=== PATIENT | female | born 1965 | race Caucasian/White ===

== ENCOUNTER 2017-06-21 16:18 | Outpatient (CLI) | payer MEDICARE, MEDICAID | END 2017-06-21 16:19 | disposition EMS.NT | LOC: EMS 16:18 | PROVIDERS: ATTEND Surgery | DX: R56.9 Unspecified convulsions (principal) ==

== ENCOUNTER 2017-06-21 22:41 | Outpatient (CLI) | payer MEDICARE, MEDICAID | END 2017-06-21 22:42 | disposition critical access hospital (66) | LOC: EMS 22:41 | PROVIDERS: ATTEND Surgery | DX: R56.9 Unspecified convulsions (principal) | CPT/HCPCS: A0425; A0427 ==

== ENCOUNTER 2017-06-21 23:02 | Emergency (ER) | payer MEDICARE, MEDICAID ==
[2017-06-22 00:23] LABS: BILIRUBIN,URINE NEGATIVE (NEGATIVE); GLUCOSE, URINE (UA) NEGATIVE (NEGATIVE); KETONES,URINE (UA) NEGATIVE (NEGATIVE); LEUKOCYTE ESTERASE, URINE NEGATIVE (NEGATIVE); NITRITE,URINE NEGATIVE (NEGATIVE); OCCULT BLOOD,URINE TRACE-INTA (NEGATIVE); PROTEIN,URINE TRACE mg/dL (NEGATIVE); UROBILINOGEN,URINE 0.2 (NORMAL) E.U./dL (NORMAL)
[2017-06-22 00:27] LABS: CLARITY,URINE CLEAR (CLEAR)
[2017-06-22 00:41] LABS: BASOPHILS # (AUTO) 0.1 10^3/uL (0.0-0.1); BASOPHILS % (AUTO) 0.6 %; HGB - HEMOGLOBIN 12.1 g/dL (12.0-16.0); LYMPHOCYTES # (AUTO) 0.8 10^3/uL (1.5-3.5); LYMPHOCYTES % (AUTO) 7.1 %; MEAN CORPUSCULAR HEMOGLOBIN 30.1 pg (27.0-31.0); MEAN CORPUSCULAR HGB CONC 34.1 g/dL (32.0-36.0); MEAN CORPUSCULAR VOLUME 88.2 fL (81.0-99.0); MONOCYTES # (AUTO) 0.5 10^3/uL (0.0-1.0); NEUTROPHILS # (AUTO) 10.4 10^3/uL (1.5-6.6); NEUTROPHILS % (AUTO) 88.3 %; PLT - PLATELET COUNT 288 10^3/uL (130-450); RED BLOOD COUNT 4.03 10^6/uL (4.20-5.40); RED CELL DISTRIBUTION WIDTH 13.2 % (12.0-15.0); WHITE BLOOD COUNT 11.8 x10^3/uL (4.8-10.8)
[2017-06-22 00:54] LABS: ALBUMIN 3.7 g/dL (3.2-5.5); ALBUMIN/GLOBULIN RATIO 1.1 (1.0-2.2); BILIRUBIN,TOTAL 0.2 mg/dL (0.2-1.0); CALCIUM 8.8 mg/dL (8.5-10.3); CREATININE 0.8 mg/dL (0.4-1.0)
[2017-06-22] MEDS: SODIUM CHLORIDE 0.9% 1,000 ML IV ONE (01:16)
[2017-06-22] MEDS: POTASSIUM BICARB 25 MEQ TABLET PO STA (01:17)
--- NOTE | 2017-06-22 01:27 | ED Physician Documentation ---
PD HPI SEIZURE - Stated complaint Stated Complaint: SZ - Chief complaint Chief Complaint: Neuro - History obtained from History obtained from: Patient, EMS - History of Present Illness Timing - onset: Today Witnessed: Witnessed Number of seizures: Multiple (X 4 today) Description of seizure activity: Generalized Injury during seizure: None Associated symptoms: None History of seizures: Known seizure disorder Contributing factors: No: Off meds, Out of meds, Low blood sugar Similar symptoms before: Diagnosis (seizure disorder) Recently seen: Not recently seen - Additional information Additional information: 51-year-old female with a lifetime history of seizure disorder maintained on topiramate and clonazepam has run out of her clonazepam. She is uncertain exactly how long she has been out she has had seizure previously when she has run out. She was not able to provide this information until late in the visit. She denies any other intercurrent illness. Review of Systems Constitutional: denies: Fever, Myalgias, Fatigue Eyes: denies: Decreased vision Ears: denies: Ear pain Nose: denies: Rhinorrhea / runny nose, Congestion Throat: denies: Sore throat Cardiac: denies: Chest pain / pressure Respiratory: denies: Dyspnea, Cough GI: denies: Abdominal Pain, Nausea, Vomiting : denies: Dysuria, Frequency Skin: denies: Rash Musculoskeletal: denies: Neck pain, Back pain Neurologic: reports: Seizure. 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 ATTENDANT: Tubal ligation - Present Medications Home Medications: Ambulatory Orders Medication Instructions Recorded Confirmed Clonazepam 1 mg PO BID 12/26/13 04/12/16 Topiramate [Topamax] 350 mg PO BID 12/26/13 04/12/16 Levothyroxine [Synthroid] 100 mcg PO QDAC 09/02/15 04/12/16 Omeprazole 20 mg PO DAILY 09/02/15 04/12/16 clonazePAM [Clonazepam] 1 mg PO BID #20 tablet 06/22/17 - Allergies Allergies/Adverse Reactions: Allergies Allergy/AdvReac Type Severity Reaction Status Date / Time phenytoin sodium * Allergy Unknown Verified 06/21/17 23:09 [From Dilantin] phenytoin sodium extended * Allergy Unknown Verified 06/21/17 23:09 [From Dilantin] - Social History Does the pt smoke?: No Smoking Status: Never smoker Does the pt drink ETOH?: No Does the pt have substance abuse?: No - POLST Patient has POLST: No PD ED PE NORMAL - Vitals Vital signs reviewed: Yes (normal ) - General General: No acute distress, Well developed/nourished, Other (The patient answers with some latency but appropriately answers questions. She seems vague about everything.) - HEENT HEENT: Atraumatic, PERRL, EOMI, Other (mild erythema to both TM's) - Neck Neck: Supple, no meningeal sign, No bony TTP - Cardiac Cardiac: RRR, No murmur - Respiratory Respiratory: No respiratory distress, Clear bilaterally - Abdomen Abdomen: Soft, Non tender - Back Back: No CVA TTP, No spinal TTP - Derm Derm: Normal color, Warm and dry, No rash - Extremities Extremities: No deformity, No edema - Neuro Neuro: No motor deficit, No sensory deficit Eye Opening: Spontaneous Motor: Obeys Commands Verbal: Oriented GCS Score: 15 - Psych Psych: Normal mood, Normal affect Results - Vitals Vitals: Vital Signs - 24 hr 06/21/17 06/21/17 06/21/17 23:04 23:26 23:30 Temperature 35.9 C L Heart Rate 100 85 84 Respiratory 20 20 Rate Blood Pressure 116/63 116/63 O2 Saturation 17 L 93 95 06/21/17 06/22/17 06/22/17 23:32 00:25 00:39 Temperature Heart Rate 80 73 86 Respiratory 20 18 17 Rate Blood Pressure 99/63 102/60 O2 Saturation 97 100 100 06/22/17 06/22/17 06/22/17 01:50 02:38 03:05 Temperature Heart Rate 89 80 94 Respiratory 19 18 20 Rate Blood Pressure 101/63 114/96 H 116/65 O2 Saturation 100 100 96 06/22/17 06/22/17 06/22/17 04:30 06:19 07:21 Temperature Heart Rate 83 62 83 Respiratory 16 16 16 Rate Blood Pressure 119/70 110/69 118/79 O2 Saturation 97 96 96 Oxygen O2 Source Room air Oxygen Flow Rate 3 - EKG (time done) 0531 Rate: Rate (enter#) (76) Rhythm: NSR Ischemia: Normal ST segments Compare to prior EKG: Old EKG unavailable Computer interpretation: Agree with computer - Labs Labs: Laboratory Tests 06/21/17 06/21/17 06/21/17 00:33 00:33 00:33 WBC 11.8 H RBC 4.03 L Hgb 12.1 Hct 35.5 L MCV 88.2 MCH 30.1 MCHC 34.1 RDW 13.2 Plt Count 288 MPV 7.0 L Neut # 10.4 H Lymph # 0.8 L [place] # 0.5 Eos # 0.0 Baso # 0.1 Absolute Nucleated RBC 0.00 Nucleated RBC % 0.0 Sodium 132 L Potassium 2.9 L Chloride 97 L Carbon Dioxide 20 L Anion Gap 15.0 H BUN 12 Creatinine 0.8 Estimated GFR (MDRD) 75 L Glucose 153 H Calcium 8.8 Total Bilirubin 0.2 AST 28 ALT 19 Alkaline Phosphatase 78 Total Creatine Kinase CK-MB (CK-2) Troponin I 0.05 Total Protein 7.0 Albumin 3.7 Globulin 3.3 Albumin/Globulin Ratio 1.1 Lipase 19 L Urine Color Urine Clarity Urine pH Ur Specific [place] Urine Protein Urine Glucose (UA) Urine Ketones Urine Occult Blood Urine Nitrite Urine Bilirubin Urine Urobilinogen Ur Leukocyte Esterase Ur Microscopic Review Urine Culture Comments 06/22/17 06/22/17 06/22/17 00:05 03:33 03:33 WBC RBC Hgb Hct MCV MCH MCHC RDW Plt Count MPV Neut # Lymph # [place] # Eos # Baso # Absolute Nucleated RBC Nucleated RBC % Sodium Potassium Chloride Carbon Dioxide Anion Gap BUN Creatinine Estimated GFR (MDRD) Glucose Calcium Total Bilirubin AST ALT Alkaline Phosphatase Total Creatine Kinase 242 CK-MB (CK-2) 4.0 Troponin I Total Protein Albumin Globulin Albumin/Globulin Ratio Lipase Urine Color YELLOW Urine Clarity CLEAR Urine pH 6.0 Ur Specific [place] 1.015 Urine Protein TRACE Urine Glucose (UA) NEGATIVE Urine Ketones NEGATIVE Urine Occult Blood TRACE-INTA Urine Nitrite NEGATIVE Urine Bilirubin NEGATIVE Urine Urobilinogen 0.2 (NORMAL) Ur Leukocyte Esterase NEGATIVE Ur Microscopic Review NOT INDICATED Urine Culture Comments NOT INDICATED 06/22/17 06/22/17 04:02 06:35 WBC RBC Hgb Hct MCV MCH MCHC RDW Plt Count MPV Neut # Lymph # [place] # Eos # Baso # Absolute Nucleated RBC Nucleated RBC % Sodium Potassium Chloride Carbon Dioxide Anion Gap BUN Creatinine Estimated GFR (MDRD) Glucose Calcium Total Bilirubin AST ALT Alkaline Phosphatase Total Creatine Kinase CK-MB (CK-2) Troponin I 0.09 0.11 Total Protein Albumin Globulin Albumin/Globulin Ratio Lipase Urine Color Urine Clarity Urine pH Ur Specific [place] Urine Protein Urine Glucose (UA) Urine Ketones Urine Occult Blood Urine Nitrite Urine Bilirubin Urine Urobilinogen Ur Leukocyte Esterase Ur Microscopic Review Urine Culture Comments Procedures - IVC sono (time) 0115 Bedside IVC sono: IVC measures (cm) (0.97), IVC collapsed c insp (cm) (complete) , Dehydration (est 2 liter deficiet) PD MEDICAL DECISION MAKING - ED course Complexity details: reviewed old records, reviewed results, re-evaluated patient , considered differential, d/w patient ED course: 51 y/o female with a seizure disorder since childhood has had 4 seizures today and she is uncertain about weather she has taken her topomax. She is administered her topamax this morning. She has run out of her clonazepam and has had seizure because of this previously. She is administered clonazepam as well. Today we measured her troponin when she arrived and it was a tick above normal. A second trop was a tiny higher and I have asked the hospitalist to admit the patient to observation to follow the trop. Elevations in trop are minimal and a third trop is obtained in the ED and the patient is discharged to home. I could not make a case for a coronary syndrome and my only explanation for the elevated trop was the stress of the multiple seizures. Departure - Departure Disposition: 01 Home, Self Care Clinical Impression: Recurrent seizures, Elevation of cardiac enzymes, Seizure secondary to subtherapeutic anticonvulsant medication Condition: Stable Instructions: ED Seizure Recurrent Follow-Up: Alysa Blanco PA-C [Primary Care Provider] - Prescriptions: clonazePAM [Clonazepam] 1 mg PO BID #20 tablet Discharge Date/Time: 06/22/17 08:15
[2017-06-22] MEDS: POTASSIUM CHLORIDE 20 MEQ TABLET PO STA (03:03)
[2017-06-22] MEDS: TOPIRAMATE 100 MG TABLET PO STA (04:30)
[2017-06-22] MEDS: clonazePAM 0.5 MG TABLET PO STA (04:59)
[2017-06-22 07:22] VITALS: BP 118/79
== END 2017-06-22 08:15 | disposition home or self-care (01) ==
LOC: ED 23:02
DX: G40.909 Epilepsy, unspecified, not intractable, without status epilepticus (principal); T42.4X6A Underdosing of benzodiazepines, initial encounter; Z91.128 Patient's intentional underdosing of medication regimen for other reason; R79.89 Other specified abnormal findings of blood chemistry; E86.0 Dehydration; E03.9 Hypothyroidism, unspecified; K21.9 Gastro-esophageal reflux disease without esophagitis; M19.90 Unspecified osteoarthritis, unspecified site
CPT/HCPCS: 36415; 51701; 80053; 81001; 81003; 82550; 82553; 83690; 84484; 85025; 87086; 93005; 96360; 99285

== ENCOUNTER 2017-08-03 08:08 | Outpatient (CLI) | payer MEDICARE, MEDICAID | END 2017-08-03 08:09 | disposition critical access hospital (66) | LOC: EMS 08:08 | PROVIDERS: ATTEND Surgery | DX: I46.9 Cardiac arrest, cause unspecified (principal) | CPT/HCPCS: A0425; A0433 ==

== ENCOUNTER 2017-08-03 08:22 | Inpatient (IN) | payer MEDICARE, MEDICAID ==
[2017-08-03] MEDS ORDERED: SODIUM CHLORIDE 0.9% 1,000 ML IV ONE (08:30)
--- NOTE | 2017-08-03 08:32 | ED Physician Documentation ---
PD HPI CPR - Stated complaint Stated Complaint: POST CPR - History obtained from History obtained from: EMS - History of Present Illness Timing - onset: Today Timing - onset during: Light activity, Other (The patient's brother hurt her to gasp out and then collapse in a similar fashion to what she does when she has seizures. She has been having more often seizures lately. She has a long-term seizure disorder since childhood. The brother did go to see a check on her and saw that she was collapsed against the wall in the bathroom and had snoring type breathing. He alerted another family member and they try to reposition her away from the wall. It was probably 10 or 15 minutes duration from the initial collapse until they got her away from the wall. She does have a long enough history of seizures that they were believing that was the issue. However at that point they found that she did not have any breathing and did not have any apparent pulse. They called EMS and on EMS arrival they found the patient to be in asystole without any pulse or breathing. CPR was commenced I believe at that time of the family members may have started it prior. CPR and 2 doses of epinephrine returned the heart rate was sinus rhythm though she did very remain hypotensive and unresponsive. She was brought to the ER intubated without requiring any any sedation.) Preceding symptoms: Other (seizure) Contributing factors: Other (history of seizures). No: CAD Recently seen: Clinic (though her brother said that PCP did not refill her seizure meds and patient out of them the past couple of days, and deferred to Neurologist but had not gotten refills authorized from specialist as yet.) Witnessed: Arrest not witnesssed Fall: Fell down Bystander CPR: Bystander CPR, Downtime before CPR (10-15 minutes, though she reported had some snoring respirations initially during that time.) EMS findings: Unresponsive, Apneic, Pulseless, Asystole Treatment GRAINER MACHINE: CPR, Intubated, Epi Advanced directive: No advanced directive Review of Systems Unable to obtain: Unresponsive, Intubated, Other (info from brother) Constitutional: denies: Fever Nose: denies: Congestion Respiratory: denies: Cough GI: denies: Vomiting, Diarrhea Neurologic: denies: Focal weakness PD PAST MEDICAL HISTORY - Past Medical History Cardiovascular: None Respiratory: None Neuro: Seizure disorder Endocrine/Autoimmune: HyPOthyroidism GI: GERD 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 : None HEENT: None Psych: None Musculoskeletal: Osteoarthritis Derm: None - Past Surgical History Past Surgical History: Yes General: Colonoscopy /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: Tubal ligation - Present Medications Home Medications: Ambulatory Orders Medication Instructions Recorded Confirmed Clonazepam 1 mg PO BID 12/26/13 04/12/16 Topiramate [Topamax] 350 mg PO BID 12/26/13 04/12/16 Levothyroxine [Synthroid] 100 mcg PO QDAC 09/02/15 04/12/16 Omeprazole 20 mg PO DAILY 09/02/15 04/12/16 clonazePAM [Clonazepam] 1 mg PO BID #20 tablet 06/22/17 - Allergies Allergies/Adverse Reactions: Allergies Allergy/AdvReac Type Severity Reaction Status Date / Time phenytoin sodium * Allergy Unknown Verified 06/21/17 23:09 [From Dilantin] phenytoin sodium extended * Allergy Unknown Verified 06/21/17 23:09 [From Dilantin] - Social History Does the pt smoke?: No Smoking Status: Never smoker Does the pt drink ETOH?: No Does the pt have substance abuse?: No - POLST Patient has POLST: No PD ED PE NORMAL - Vitals Vital signs reviewed: Yes - General General: Other (intubated and unresponsive. ) - HEENT HEENT: Atraumatic, Other (no gag reflex). No: PERRL (fixed and midpoint, unreactive. ) - Neck Neck: Other (no obvious deformity) - Cardiac Cardiac: RRR, No murmur - Respiratory Respiratory: No: Clear bilaterally (less sounds left side; some coarse on right. ) - Abdomen Abdomen: Soft, Non distended, Other (obese) - Derm Derm: Normal color, Warm and dry - Neuro Neuro: Other (no reflexes) Eye Opening: None Motor: None Verbal: None GCS Score: 3 Results - Vitals Vitals: Vital Signs - 24 hr 08/03/17 08/03/17 08:22 08:38 Temperature 35.9 C L Heart Rate 86 72 Respiratory 16 Rate Blood Pressure 94/50 L O2 Saturation 99 Oxygen O2 Source Ambu bag - Labs Labs: Laboratory Tests 08/03/17 08/03/17 08/03/17 08:35 08:35 08:35 WBC 25.7 H RBC 3.86 L Hgb 11.5 L Hct 36.1 L MCV 93.3 MCH 29.8 MCHC 31.9 L RDW 13.6 Plt Count 298 MPV 7.1 L Neut # 19.0 H Lymph # 5.7 H [place] # 0.8 Eos # 0.2 Baso # 0.1 Absolute Nucleated RBC 0.00 Nucleated RBC % 0.0 Manual Slide Review Indicated RBC Morph Micro Appear 1+ ANISOCYTOSIS Bld Gas Analysis Time Sample Site ABG pH ABG pCO2 ABG pO2 ABG HCO3 ABG Total CO2 ABG O2 Saturation ABG Base Excess Nithin Test Respiration Rate O2 Delivery Device Vent Mode FiO2 Tidal Volume PEEP Pressure Support Vent Sodium 137 Potassium 4.2 Chloride 100 L Carbon Dioxide 14 L Anion Gap 24.0 H BUN 13 Creatinine 1.5 H Estimated GFR (MDRD) 36 L Glucose 273 H Lactic Acid > 10.0 H* Calcium 8.4 L Magnesium 2.5 Total Bilirubin 0.5 AST 501 H ALT 502 H Alkaline Phosphatase 98 Total Protein 6.1 L Albumin 3.1 L Globulin 3.0 Albumin/Globulin Ratio 1.0 Lipase 17 L 08/03/17 09:30 WBC RBC Hgb Hct MCV MCH MCHC RDW Plt Count MPV Neut # Lymph # [place] # Eos # Baso # Absolute Nucleated RBC Nucleated RBC % Manual Slide Review RBC Morph Micro Appear Bld Gas Analysis Time 0934 Sample Site RIGHT RADIAL ABG pH 7.14 L* ABG pCO2 35 ABG pO2 148 H ABG HCO3 11.4 L ABG Total CO2 12.5 L ABG O2 Saturation 98 ABG Base Excess -16.6 L Nithin Test NOT APPLICABLE Respiration Rate 16 O2 Delivery Device VENTILATOR Vent Mode SIMV FiO2 60.00 Tidal Volume 450 PEEP 5 Pressure Support Vent 10 Sodium Potassium Chloride Carbon Dioxide Anion Gap BUN Creatinine Estimated GFR (MDRD) Glucose Lactic Acid Calcium Magnesium Total Bilirubin AST ALT Alkaline Phosphatase Total Protein Albumin Globulin Albumin/Globulin Ratio Lipase - Rads (name of study) chest Radiology: Prelim report reviewed, EMP read contemporaneously (rigth mainstem with airspace disease right upper. ETT pulled back 2 cm. ) head CT Radiology: Prelim report reviewed (diffuse edema), EMP read contemporaneously PD MEDICAL DECISION MAKING - ED course Complexity details: considered differential (sounds likely seizure with them malposition of airway and anoxic injury. ), d/w family (Patient does not have a pulsed form or prior medical directives. Her family members are here discussed the critical nature and poor prognosis for the patient. At this point I said the prognosis is very poor for any brain recovery. Her heart rate and blood pressure are stable at this point. They are going to talk to other family members regarding choices of further care with the intubation in the short-term versus extubation and allowing natural versus consideration of organ donation. At this point we will continue care as is an admit the patient to the ICU pending further discussion with the family.) - Critical Care Time(min): 35 Time Includes: Direct patient care, Reassess patient, Document care, Family consult for tx dec Data interpretation: Labs, ABG, CXR Procedures excluded from critical care time: EKG Departure - Departure Disposition: 66 [facility] DC/Xfer Clinical Impression: Anoxic brain damage, Seizure, Seizure disorder Condition: Stable Record reviewed to determine appropriate education?: Yes
[2017-08-03] MEDS: SODIUM CHLORIDE 0.9% 1,000 ML IV ONE ×2 (08:40→10:42)
[2017-08-03 08:50] LABS: BASOPHILS # (AUTO) 0.1 10^3/uL (0.0-0.1); BASOPHILS % (AUTO) 0.2 %; EOSINOPHILS # (AUTO) 0.2 10^3/uL (0.0-0.7); EOSINOPHILS % (AUTO) 0.7 %; HGB - HEMOGLOBIN 11.5 g/dL (12.0-16.0); LYMPHOCYTES # (AUTO) 5.7 10^3/uL (1.5-3.5); LYMPHOCYTES % (AUTO) 22.1 %; MEAN CORPUSCULAR HEMOGLOBIN 29.8 pg (27.0-31.0); MEAN CORPUSCULAR HGB CONC 31.9 g/dL (32.0-36.0); MEAN CORPUSCULAR VOLUME 93.3 fL (81.0-99.0); MEAN PLATELET VOLUME 7.1 fL (7.9-10.8); MONOCYTES # (AUTO) 0.8 10^3/uL (0.0-1.0); PLT - PLATELET COUNT 298 10^3/uL (130-450); RED BLOOD COUNT 3.86 10^6/uL (4.20-5.40); RED CELL DISTRIBUTION WIDTH 13.6 % (12.0-15.0); WHITE BLOOD COUNT 25.7 x10^3/uL (4.8-10.8)
[2017-08-03 09:13] LABS: ALBUMIN 3.1 g/dL (3.2-5.5); BILIRUBIN,TOTAL 0.5 mg/dL (0.2-1.0); CALCIUM 8.4 mg/dL (8.5-10.3); CREATININE 1.5 mg/dL (0.4-1.0); MAGNESIUM 2.5 mg/dL (1.7-2.8); TOTAL PROTEIN 6.1 g/dL (6.7-8.2)
--- NOTE | 2017-08-03 09:14 | XRAY Report ---
EXAM: CHEST RADIOGRAPHY EXAM DATE: 08/03/2017 08:54 AM. CLINICAL HISTORY: Intubated. COMPARISON: 12/26/2013. TECHNIQUE: 1 view. FINDINGS: Lungs/Pleura: There is a focal airspace process in the right upper lobe. Opacities are also noted in the left mid lung and lower lung. There is pulmonary vascular congestion. No pleural effusion. No pne umothorax. Mediastinum: Within exam limitations, the cardiomediastinal contour is normal. Other: Endotracheal tube is in the right mainstem bronchus. This should be retracted approximately 4- 5 cm. IMPRESSION: 1. Endotracheal tube in the right mainstem bronchus. This should be pulled back 4-5 cm. 2. Focal airspace process in the right upper lobe. Opacities are also seen in the left midlung and lo wer lung. 3. No pneumothorax. RADIA The above findings were discussed with Dr. Luna by Dr. Ana Almanzar at 09:09 hrs on 08/03/17. Referring Provider Line: [phone] SITE ID: [id number]
[2017-08-03 09:20] LABS: RBC MORPHOLOGY (MULTIPLE) 1+ ANISOCYTOSIS (NORMAL)
[2017-08-03 09:40] LABS: ABG BASE EXCESS -16.6 mmol/L (-2.0-3.0); ABG HCO3 11.4 mmol/L (22.0-26.0); ABG OXYGEN SATURATION 98 % (94-98); ABG PCO2 35 mmHg (34-45); ABG PO2 148 mmHg (80-100); ABG TCO2 12.5 MMOL/L (21.0-29.0)
--- NOTE | 2017-08-03 09:41 | CT Report ---
EXAM: CT HEAD EXAM DATE: 08/03/2017 09:06 AM. CLINICAL HISTORY: Seizure and arrest. COMPARISON: 08/23/2014. TECHNIQUE: Multiaxial CT images were obtained from the foramen magnum to the vertex. Reformats: Coron al. IV contrast: None. In accordance with CT protocol optimization, one or more of the following dose reduction techniques w ere utilized for this exam: automated exposure control, adjustment of mA and/or KV based on patient s ize, or use of iterative reconstructive technique. FINDINGS: Parenchyma/CSF spaces: There is diffuse edema with effacement of the CSF containing spaces. There is decreased cortical underwood matter attenuation with loss of normal underwood-white differentiation. Findings a re compatible with global hypoxic ischemic encephalopathy. Sinuses and Orbits: Imaged paranasal sinuses, orbits, and mastoids show no significant abnormality. Bones: No evidence of fracture or calvarial defect. Other: None. IMPRESSION: Evidence for a global hypoxic ischemic encephalopathy with diffuse edema, effacement of t he CSF containing spaces, and loss of the normal underwood-white differentiation. RADIA The above findings were discussed with Dr. Luna by Dr. Ana Almanzar at 09:39 hrs on 08/03/17. Referring Provider Line: [phone] SITE ID: [id number]
[2017-08-03 09:45] LABS: ABG PH 7.14 (7.35-7.45)
--- NOTE | 2017-08-03 09:45 | CT Report ---
EXAM: CT CERVICAL SPINE WITHOUT CONTRAST DATE: 08/03/2017 09:10 AM. HISTORY: Seizure and arrest with fall. COMPARISONS: 08/23/2014. TECHNIQUE: Thin-section axial images were acquired of the cervical spine without contrast. Post-proce ssing: Coronal and sagittal reformats. Other: None. In accordance with CT protocol optimization, one or more of the following dose reduction techniques w ere utilized for this exam: automated exposure control, adjustment of mA and/or KV based on patient s ize, or use of iterative reconstructive technique. FINDINGS: Alignment: No scoliosis or spondylolisthesis. Bones: No fracture or bone lesion. Interspace Levels/Facets: Mild degenerative changes, but no narrowing. Musculature: Normal. No fatty atrophy. Other: Please refer to same day head CT for findings in the brain. Heterogeneous thyroid gland. Airspace process in the right upper lobe. Mild developing airspace proce ss or atelectasis in the left upper lobe. Endotracheal tube noted within the trachea. IMPRESSION: 1. No fracture. 2. Opacities in the lungs. 3. Heterogeneous thyroid gland. 4. Endotracheal tube. RADIA Referring Provider Line: [phone] SITE ID: [id number]
--- NOTE | 2017-08-03 09:45 | CT Preliminary Report ---
Exam: CT CERVICAL SPINE W/O IMPRESSION: 1. No fracture. 2. Opacities in the lungs. 3. Heterogeneous thyroid gland. 4. Endotracheal tube. RADIA SITE ID: [id number]
--- NOTE | 2017-08-03 09:48 | XRAY Report ---
EXAM: CHEST RADIOGRAPHY EXAM DATE: 08/03/2017 09:29 AM. CLINICAL HISTORY: Tube reposition. COMPARISON: Same day chest radiograph. TECHNIQUE: 1 view. FINDINGS: Endotracheal tube has been retracted but is now at the level of the mary. This should be pulled dora k approximately 4 cm. The remainder of the chest including the lungs is stable. IMPRESSION: Endotracheal tube has been retracted but is now at the level of the mary. This should b e pulled back approximately 4 cm. RADIA The above findings were discussed with Dr. Luna by Dr. Ana Almanzar at 09:46 hrs on 08/03/17. Referring Provider Line: [phone] SITE ID: [id number]
[2017-08-03] MEDS ORDERED: SODIUM CHLORIDE FLUSH 0.9% 10 ML SYRINGE IVP PRN (10:16)
[2017-08-03] MEDS ORDERED: MORPHINE 2 MG/ML CARPUJECT IVP PRN (10:16)
[2017-08-03] MEDS ORDERED: D5NS W/20 MEQ KCL 1,000 ML IV SCH ×2 (11:00)
[2017-08-03] MEDS ORDERED: SODIUM CHLORIDE FLUSH 0.9% 10 ML SYRINGE IVP SCH (17:00)
[2017-08-03] MEDS ORDERED: CHLORHEXIDINE GLUCONATE 15 ML UDC PO SCH (18:00)
[2017-08-03] MEDS ORDERED: LORazepam 2 MG/ML VIAL IVP PRN (18:23)
[2017-08-03] MEDS ORDERED: GLYCOPYRROLATE 1 MG/5 ML VIAL IVP PRN (18:24)
[2017-08-03] MEDS ORDERED: MORPHINE 10 MG/ML VIAL IVP PRN (18:26)
[2017-08-03] MEDS ORDERED: MORPHINE 10 MG/ML VIAL ONE (18:28)
[2017-08-03] MEDS ORDERED: LORazepam 2 MG/ML VIAL ONE (18:29)
[2017-08-03 19:26] VITALS: BP 118/84
--- NOTE | 2017-08-03 20:27 | HISTORY & PHYSICAL EXAMINATION ---
Chief Complaint - Chief Complaint Chief Complaint: unresponsiveness History of Present Illness - Admitted From Admitted From:: home - History Obtained From Records Reviewed: yes History obtained from: ex-, roommate, Dr. Luna Exam Limitations: Pt is unresponsive - History of Present Illness HPI Comment/Other: Miss Maria L Montilla is an -[id number] femaleWho has a past medical history significant for lifelong seizure disorder, And who is well- known to the emergency department staff at [facility]. Ms. Montilla lives with her ex- and his brother and today, one of her roommates heard her snorting in the bathroom, And he recognize the sounds as sounds that she often makes when she has a seizure.When he went in to investigate, he found her slumped over, caught in between the toilet and the bath tub. He was unable to move her by himself and so he went to get his brother.They moved her out of the bathroom and at that point noticed that she was not breathing.They called 911 and EMS arrived and was able to intubate the patient and restart her heart. She was brought into the emergency department in an unresponsive state and was evaluated by the emergency room physicians. It is believed that she has suffered significant anoxic encephalopathy. At this time the patient's family is leaning towards removing the patient from the ventilator and allowing her to have a natural , however not everyone is here and they are requesting that we admit her until there is a consensus in the family. 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 : reports: None HEENT: reports: None Psych: reports: None Musculoskeletal: reports: Osteoarthritis Derm: reports: None MRSA Hx?: No - Past Surgical History General: reports: Colonoscopy /WRAPPING MACHINE OPERATOR: reports: Tubal ligation - Family & Social History Family History: Mother: Alive and Well Living arrangement: At home Living Situation: With friend(s) - Substance History Use: Uses substance without health or social issues: NONE Abuse: Recurrent use of substance despite neg consequences: NONE Dependence: Experiences withdrawal or developed tolerances: NONE - POLST Patient has POLST: No POLST Status: DNR Meds/Allgy - Home Medications Home Medications: Ambulatory Orders Medication Instructions Recorded Confirmed Clonazepam 2 mg PO QPM 12/26/13 08/03/17 Topiramate [Topamax] 350 mg PO BID 12/26/13 08/03/17 Levothyroxine [Synthroid] 100 mcg PO QDAC 09/02/15 08/03/17 Omeprazole 20 mg PO DAILY 09/02/15 08/03/17 Furosemide [Lasix] 80 mg PO DAILY 08/03/17 08/03/17 Montelukast [Singulair] 10 mg PO QPM 08/03/17 08/03/17 Potassium Chloride [Klor-Con 10] 10 meq PO DAILY 08/03/17 08/03/17 Spironolactone [Aldactone] 100 mg PO DAILY 08/03/17 08/03/17 clonazePAM [Clonazepam] 1 mg PO DAILY 08/03/17 08/03/17 - Allergies Allergies/Adverse Reactions: Allergies Allergy/AdvReac Type Severity Reaction Status Date / Time phenytoin sodium * Allergy Unknown Verified 06/21/17 23:09 [From Dilantin] phenytoin sodium extended * Allergy Unknown Verified 06/21/17 23:09 [From Dilantin] Review of Systems - Constitutional Constitutional: reports: Other (I am unable to perform a review systems on the patient as she's unresponsive) Exam - Vital Signs Reviewed Vital Signs: Yes Vital Signs: Vital Signs x48h Temp Pulse Pulse Resp BP Pulse Ox 08/03/17 18:00 74 16 118/84 H 100 08/03/17 16:00 35.6 C L 84 16 132/96 H 100 08/03/17 15:08 87 08/03/17 15:00 90 16 152/101 H 100 08/03/17 14:13 90 16 142/97 H 100 08/03/17 14:00 90 16 142/97 H 100 08/03/17 13:24 91 16 134/92 H 100 - Physical Exam General Appearance: positive: No acute distress, Other (unresponsive/comatose) Eyes Bilateral: positive: Normal inspection, No lid inflammation, Conjunctivae nml, No scleral icterus ENT: positive: ENT inspection nml, Pharynx nml, No signs of dehydration Neck: positive: Nml inspection, Thyroid nml, No JVD, Other (endotracheal tube in place) Respiratory: positive: Other (On a ventilator). negative: Wheezes, Rales, Rhonchi Cardiovascular: negative: Regular rate & rhythm, No murmur, No gallop Peripheral Pulses: positive: 1+ Abdomen: negative: No organomegaly, No distention, Hepatomegaly, Mass Skin: positive: Color nml, No rash, Warm, Dry. negative: Cyanosis Extremities: positive: Nml appearance, No pedal edema. negative: Joint swelling Neurologic/Psychiatric: positive: Other (comatose/unresponsive) Conclusion/Plan - Problem List (1) Anoxic brain damage Conclusion/Plan: The Patient may have been apneic for over 15 minutes. There're no signs of any type of consciousness, and the patient's family believes that they will want to have the ventilator withdrawn, but are waiting for 2 family members to come in order to make a final decision. We will admit the patient to the intensive care unit on the ventilator, with the goal of keeping her oxygen saturation above 95% , and will do scheduled neuro checks. I will prepare a POLST document and meet with the patient's family when they are all here. (2) Seizure disorder Conclusion/Plan: The patient is well known the the [facility] ED staff because she has seizures many times a year. We will place the patient on scheduled ativan for comfort and seizure prophylaxis. - Lab Results Lab results reviewed: Yes Fish Bones: 08/03/17 08:35 08/03/17 08:35 - Diagnostic Imaging Results Diagnostic Imaging Results: positive: Final report reviewed Diagnostic Imaging Results Comments: EXAM: CHEST RADIOGRAPHY EXAM DATE: 08/03/2017 08:54 AM. CLINICAL HISTORY: Intubated. COMPARISON: 12/26/2013. TECHNIQUE: 1 view. FINDINGS: Lungs/Pleura: There is a focal airspace process in the right upper lobe. Opacities are also noted in the left mid lung and lower lung. There is pulmonary vascular congestion. No pleural effusion. No pneumothorax. Mediastinum: Within exam limitations, the cardiomediastinal contour is normal. Other: Endotracheal tube is in the right mainstem bronchus. This should be retracted approximately 4-5 cm. IMPRESSION: 1. Endotracheal tube in the right mainstem bronchus. This should be pulled back 4-5 cm. 2. Focal airspace process in the right upper lobe. Opacities are also seen in the left midlung and lower lung. 3. No pneumothorax. EXAM: CT HEAD EXAM DATE: 08/03/2017 09:06 AM. CLINICAL HISTORY: Seizure and arrest. COMPARISON: 08/23/2014. TECHNIQUE: Multiaxial CT images were obtained from the foramen magnum to the vertex. Reformats: Coronal. IV contrast: None. In accordance with CT protocol optimization, one or more of the following dose reduction techniques were utilized for this exam: automated exposure control, adjustment of mA and/or KV based on patient size, or use of iterative reconstructive technique. FINDINGS: Parenchyma/CSF spaces: There is diffuse edema with effacement of the CSF containing spaces. There is decreased cortical underwood matter attenuation with loss of normal underwood-white differentiation. Findings are compatible with global hypoxic ischemic encephalopathy. Sinuses and Orbits: Imaged paranasal sinuses, orbits, and mastoids show no significant abnormality. Bones: No evidence of fracture or calvarial defect. Other: None. IMPRESSION: Evidence for a global hypoxic ischemic encephalopathy with diffuse edema, effacement of the CSF containing spaces, and loss of the normal underwood-white differentiation. EXAM: CT CERVICAL SPINE WITHOUT CONTRAST DATE: 08/03/2017 09:10 AM. HISTORY: Seizure and arrest with fall. COMPARISONS: 08/23/2014. TECHNIQUE: Thin-section axial images were acquired of the cervical spine without contrast. Post- processing: Coronal and sagittal reformats. Other: None. In accordance with CT protocol optimization, one or more of the following dose reduction techniques were utilized for this exam: automated exposure control, adjustment of mA and/or KV based on patient size, or use of iterative reconstructive technique. FINDINGS: Alignment: No scoliosis or spondylolisthesis. Bones: No fracture or bone lesion. Interspace Levels/Facets: Mild degenerative changes, but no narrowing. Musculature: Normal. No fatty atrophy. Other: Please refer to same day head CT for findings in the brain. Heterogeneous thyroid gland. Airspace process in the right upper lobe. Mild developing airspace process or atelectasis in the left upper lobe. Endotracheal tube noted within the trachea. IMPRESSION: 1. No fracture. 2. Opacities in the lungs. 3. Heterogeneous thyroid gland. 4. Endotracheal tube. EXAM: CHEST RADIOGRAPHY EXAM DATE: 08/03/2017 09:29 AM. CLINICAL HISTORY: Tube reposition. COMPARISON: Same day chest radiograph. TECHNIQUE: 1 view. FINDINGS: Endotracheal tube has been retracted but is now at the level of the mary. This should be pulled back approximately 4 cm. The remainder of the chest including the lungs is stable. IMPRESSION: Endotracheal tube has been retracted but is now at the level of the mary. This should be pulled back approximately 4 cm. - EKG Results EKG Interpreted Independently: Yes EKG Comparison: Old EKG unavailable EKG Findings: NSR, no ischemic changes Core Measures - Anticipated LOS I expect patient to be DC'd or transferred within 96 hours.: Yes - DVT/VTE - Prophylaxis VTE/DVT Device ordered at admit?: Yes
--- NOTE | 2017-08-04 07:20 | Discharge Plan ---
Discharge Plan Disposition: 20 Condition: Critical No Smoking: If you smoke, Please STOP! Call for help. Follow-up with: Alysa Blanco PA-C [Primary Care Provider] -
--- NOTE | 2017-08-04 07:23 | DISCHARGE SUMMARY ---
Discharge Summary Admit Date: 08/03/17 Discharge Date: 08/03/17 Discharging Provider: Tiffany Irby DO Primary Care Provider: No PCP Code Status: Do Not Attempt Resuscitation Condition at Discharge: Critical Discharge Disposition: 20 - DIAGNOSES Admission Diagnoses: 1) Anoxic encephalopathy 2) Seizure disorder Discharge Diagnoses with Status of Each Condition: Anoxic encephalopathy- patient after being taken off the ventilator at the request of her family. - HPI History of Present Illness: Miss Maria L Montilla is an [id number] femaleWho has a past medical history significant for lifelong seizure disorder, And who is well- known to the emergency department staff at [facility]. Ms. Montilla lives with her ex- and his brother and today, one of her roommates heard her snorting in the bathroom, And he recognize the sounds as sounds that she often makes when she has a seizure.When he went in to investigate, he found her slumped over, caught in between the toilet and the bath tub. He was unable to move her by himself and so he went to get his brother.They moved her out of the bathroom and at that point noticed that she was not breathing.They called 911 and EMS arrived and was able to intubate the patient and restart her heart. She was brought into the emergency department in an unresponsive state and was evaluated by the emergency room physicians. It is believed that she has suffered significant anoxic encephalopathy. At this time the patient's family is leaning towards removing the patient from the ventilator and allowing her to have a natural , however not everyone is here and they are requesting that we admit her until there is a consensus in the family. - HOSPITAL COURSE Hospital Course: The patient was admitted to the intensive care unit on the ventilator and placed on comfort medications. Within the next 4 or 5 hours all of her family gathered. I held a family conference in which a POLST was signed, and the decision was made to remove her from the ventilator. We premedicated the patient with Robinul, Ativan, and morphine and the patient was extubated. She remained very comfortable throughout the entire process and showed no signs of any anxiety or pain. She never breathed on her own after being extubated and approximately 10 minutes later. - ALLERGIES Allergies/Adverse Reactions: Allergies Allergy/AdvReac Type Severity Reaction Status Date / Time phenytoin sodium * Allergy Unknown Verified 06/21/17 23:09 [From Dilantin] phenytoin sodium extended * Allergy Unknown Verified 06/21/17 23:09 [From Dilantin] - MEDICATIONS Home Medications: Ambulatory Orders Medication Instructions Recorded Confirmed Clonazepam 2 mg PO QPM 12/26/13 08/03/17 Topiramate [Topamax] 350 mg PO BID 12/26/13 08/03/17 Levothyroxine [Synthroid] 100 mcg PO QDAC 09/02/15 08/03/17 Omeprazole 20 mg PO DAILY 09/02/15 08/03/17 Furosemide [Lasix] 80 mg PO DAILY 08/03/17 08/03/17 Montelukast [Singulair] 10 mg PO QPM 08/03/17 08/03/17 Potassium Chloride [Klor-Con 10] 10 meq PO DAILY 08/03/17 08/03/17 Spironolactone [Aldactone] 100 mg PO DAILY 08/03/17 08/03/17 clonazePAM [Clonazepam] 1 mg PO DAILY 08/03/17 08/03/17 - PHYSICAL EXAM AT DISCHARGE General Appearance: positive: Other (The patient is .) - LABS Result Diagrams: 08/03/17 08:35 08/03/17 08:35 - DIAGNOSTIC IMAGING Diagnostic Imaging Results: Final report reviewed Diagnostic Imaging Results Comments: EXAM: CHEST RADIOGRAPHY EXAM DATE: 08/03/2017 08:54 AM. CLINICAL HISTORY: Intubated. COMPARISON: 12/26/2013. TECHNIQUE: 1 view. FINDINGS: Lungs/Pleura: There is a focal airspace process in the right upper lobe. Opacities are also noted in the left mid lung and lower lung. There is pulmonary vascular congestion. No pleural effusion. No pneumothorax. Mediastinum: Within exam limitations, the cardiomediastinal contour is normal. Other: Endotracheal tube is in the right mainstem bronchus. This should be retracted approximately 4-5 cm. IMPRESSION: 1. Endotracheal tube in the right mainstem bronchus. This should be pulled back 4-5 cm. 2. Focal airspace process in the right upper lobe. Opacities are also seen in the left midlung and lower lung. 3. No pneumothorax. EXAM: CT HEAD EXAM DATE: 08/03/2017 09:06 AM. CLINICAL HISTORY: Seizure and arrest. COMPARISON: 08/23/2014. TECHNIQUE: Multiaxial CT images were obtained from the foramen magnum to the vertex. Reformats: Coronal. IV contrast: None. In accordance with CT protocol optimization, one or more of the following dose reduction techniques were utilized for this exam: automated exposure control, adjustment of mA and/or KV based on patient size, or use of iterative reconstructive technique. FINDINGS: Parenchyma/CSF spaces: There is diffuse edema with effacement of the CSF containing spaces. There is decreased cortical underwood matter attenuation with loss of normal underwood-white differentiation. Findings are compatible with global hypoxic ischemic encephalopathy. Sinuses and Orbits: Imaged paranasal sinuses, orbits, and mastoids show no significant abnormality. Bones: No evidence of fracture or calvarial defect. Other: None. IMPRESSION: Evidence for a global hypoxic ischemic encephalopathy with diffuse edema, effacement of the CSF containing spaces, and loss of the normal underwood-white differentiation. EXAM: CT CERVICAL SPINE WITHOUT CONTRAST DATE: 08/03/2017 09:10 AM. HISTORY: Seizure and arrest with fall. COMPARISONS: 08/23/2014. TECHNIQUE: Thin-section axial images were acquired of the cervical spine without contrast. Post- processing: Coronal and sagittal reformats. Other: None. In accordance with CT protocol optimization, one or more of the following dose reduction techniques were utilized for this exam: automated exposure control, adjustment of mA and/or KV based on patient size, or use of iterative reconstructive technique. FINDINGS: Alignment: No scoliosis or spondylolisthesis. Bones: No fracture or bone lesion. Interspace Levels/Facets: Mild degenerative changes, but no narrowing. Musculature: Normal. No fatty atrophy. Other: Please refer to same day head CT for findings in the brain. Heterogeneous thyroid gland. Airspace process in the right upper lobe. Mild developing airspace process or atelectasis in the left upper lobe. Endotracheal tube noted within the trachea. IMPRESSION: 1. No fracture. 2. Opacities in the lungs. 3. Heterogeneous thyroid gland. 4. Endotracheal tube. EXAM: CHEST RADIOGRAPHY EXAM DATE: 08/03/2017 09:29 AM. CLINICAL HISTORY: Tube reposition. COMPARISON: Same day chest radiograph. TECHNIQUE: 1 view. FINDINGS: Endotracheal tube has been retracted but is now at the level of the mary. This should be pulled back approximately 4 cm. The remainder of the chest including the lungs is stable. IMPRESSION: Endotracheal tube has been retracted but is now at the level of the mary. This should be pulled back approximately 4 cm. - FOLLOW UP Follow Up: N/A - TIME SPENT Time Spent in Discharge (Minutes): 35
--- NOTE | 2017-08-04 07:31 | ADVANCE CARE PLANNING NOTE ---
Advance Care Planning - Date/Time Date: 08/03/17 Time: 17:45 - Purpose of encounter Text: The patient has suffered an anoxic encephalopathic brain injury. Family is gathering to decide advanced care planning at this time. - Parties in attendance Parties in attendance: The patient's mother, sister, ex-, and ex-'s brother. - Decisional capacity Decisional capacity of: The patient is unable to make any decisions at this time. - Subjective/Patient's story Subjective/Patient's story: The patient is unable to tell her story as she has suffered a devastating brain injury. - Objective/Medical story Objective/Medical Story: The patient was found on the floor not breathing. It is believed that she went between 10 and 15 minutes without any oxygen. - Goals of Care Goals of care determinations: Comfort measures and withdrawing ventilator support - Plan Plan: We will premedicate the patient and then extubate her. It is expected that she will not breeze as she has not breathe above the ventilator since she was intubated earlier today. It is expected that her will be shortly thereafter. - Code Status Code Status: Do Not Attempt Resuscitation - Time Spent on Advance Care Planning Time spent on advance care plannin minutes
== END 2017-08-03 19:03 | disposition expired | DRG 93 ==
LOC: EDUNIT# → ED 08:22 → ICU 10:16
PROVIDERS: ADMIT Hospitalist; ATTEND Hospitalist
PROC: 5A1935Z Respiratory Ventilation, Less than 24 Consecutive Hours (ICD-10-PCS; principal; 2017-08-03)
DX: G93.1 Anoxic brain damage, not elsewhere classified (principal); G40.909 Epilepsy, unspecified, not intractable, without status epilepticus; E03.9 Hypothyroidism, unspecified; M19.90 Unspecified osteoarthritis, unspecified site; Z66 Do not resuscitate
CPT/HCPCS: 36415; 36600; 51702; 70450; 71045; 72125; 80053; 82803; 83605; 83690; 83735; 85025; 87150; 93005; 94002; 94770; 99285; 99291